=== PATIENT | female | born 1940 | race Caucasian/White ===

== ENCOUNTER 2019-08-31 09:03 | Outpatient (CLI) | payer MEDICARE, BC ==
[~2019-08-31] VITALS: Ht 167.6 cm; Wt 45.8 kg
[2019-08-31] VITALS (8 sets, daily range): BP systolic 141–170; BP diastolic 45–55
[2019-08-31] MEDS ORDERED: nitroGLYCERIN 0.4mg SUBLingual tab SL PRN (10:20)
[2019-08-31] MEDS ORDERED: regadenoson 0.4mg/5ml syringe IV PRN (10:20)
[2019-08-31] MEDS ORDERED: aminophylline 250mg/10ml inj. IV PRN (10:20)
== END 2019-08-31 23:59 | disposition home or self-care (01) ==
LOC: RAD 09:03
PROVIDERS: ATTEND Internal Medicine Cardiovascular Disease
DX: Z01.810 Encounter for preprocedural cardiovascular examination (principal); I10 Essential (primary) hypertension
CPT/HCPCS: 78452; 93017; A9500; J0280; J2785